=== PATIENT | female | born 1985 | race Caucasian/White ===

== ENCOUNTER 2016-10-27 19:08 | Emergency (ER) | payer MEDICAID ==
[~2016-10-27] VITALS: Ht 154.9 cm; Wt 66.0 kg
[2016-10-27] MEDS ORDERED: ONDANSETRON 4MG ODT PO ONE (22:45)
[2016-10-27] MEDS ORDERED: ACETAMINOPHEN 325MG TABLET PO ONE (22:45)
[2016-10-27 22:48] LABS: CLARITY URINE CLEAR (CLEAR); COLOR URINE YELLOW (YELLOW); GLUCOSE URINE NEGATIVE (NEGATIVE); KETONES URINE NEGATIVE (NEGATIVE); LEUKOCYTE ESTERASE URINE NEGATIVE (NEGATIVE); NITRITE URINE NEGATIVE (NEGATIVE); OCCULT BLOOD URINE 1+ (NEGATIVE); PH URINE 5.5 (4.5-8.0); PROTEIN URINE NEGATIVE (NEGATIVE); SPECIFIC GRAVITY URINE 1.012 (1.005-1.030); UROBILINOGEN URINE 0.2 E.U./dL (0.2-1.0)
[2016-10-27 22:51] LABS: BACTERIA URINE 1+; CALCIUM PHOSPHATE CRYSTALS UR NONE SEEN /lpf; SQUAMOUS EPITHELIAL CELL URINE 1+ /lpf (RARE/1+); WAXY CASTS URINE NONE SEEN /lpf; WBC URINE 0-2 /hpf (0-2); YEAST URINE NONE SEEN
[2016-10-27 23:15] LABS: BASOPHILS % 0.9 % (0.0-2.0); EOSINOPHILS % 2.3 % (0.0-5.0); HEMATOCRIT. 39.8 % (36.0-48.0); HEMOGLOBIN. 13.2 g/dL (12.0-16.0); LYMPHOCYTES % 16.2 % (20.0-50.0); MEAN CORPUSCULAR HGB CONC 33.1 g/dL (31.0-37.0); MEAN CORPUSCULAR VOLUME 87.4 fL (81.0-99.0); MEAN PLATELET VOLUME 8.3 fl (7.4-10.4); NEUTROPHILS % 74.6 % (40.0-76.0); PLATELET 271 x1000/uL (130-400); RED BLOOD CELL COUNT 4.56 mill/uL (4.2-5.4); RED CELL DISTRIBUTION WIDTH 15.2 % (11.6-14.6); WHITE BLOOD COUNT 11.2 x1000/uL (4.5-11.0)
[2016-10-27 23:35] LABS: ALANINE AMINOTRANSFERASE 21 IU/L (13-61); ALBUMIN 3.9 g/dL (3.4-5.0); ANION GAP 15; CALCIUM 8.9 mg/dL (8.5-10.1); CARBON DIOXIDE 26 mEq/L (21-32); CHLORIDE 101 mEq/L (98-107); INDEX HEMOLYSI 1 (1-3); INDEX ICTERIC 1 (1-4); INDEX LIPEMIC 1 (1-3); LIPASE 126 IU/L (73-393); UREA NITROGEN BLOOD 9 mg/dL (7-21); eGFR > 60 mL/min (>60)
[2016-10-27 23:43] LABS: B-HCG QUANTITATIVE 4491 mIU/mL (<3)
[2016-10-28 00:45] VITALS: BP 107/64
== END 2016-10-28 00:55 | disposition home or self-care (01) ==
LOC: ER 19:08
DX: O26.899 Other specified pregnancy related conditions, unspecified trimester (principal); R10.9 Unspecified abdominal pain
CPT/HCPCS: 36415; 76801; 76817; 80053; 81001; 81025; 83690; 84702; 85025; 99285; Q0162

== ENCOUNTER 2016-12-04 12:12 | Emergency (ER) | payer MEDICAID ==
[~2016-12-04] VITALS: Ht 154.9 cm; Wt 67.0 kg
[2016-12-04] MEDS ORDERED: SODIUM CHLORIDE 0.9% 1,000 ML IV ONE (14:30)
[2016-12-04 14:58] LABS: CLARITY URINE CLOUDY (CLEAR); COLOR URINE YELLOW (YELLOW); GLUCOSE URINE NEGATIVE (NEGATIVE); KETONES URINE NEGATIVE (NEGATIVE); LEUKOCYTE ESTERASE URINE 1+ (NEGATIVE); NITRITE URINE NEGATIVE (NEGATIVE); OCCULT BLOOD URINE NEGATIVE (NEGATIVE); PROTEIN URINE NEGATIVE (NEGATIVE); SPECIFIC GRAVITY URINE 1.023 (1.005-1.030)
[2016-12-04 15:29] LABS: MUCUS URINE 3+ /lpf (< = 2+); SQUAMOUS EPITHELIAL CELL URINE 3+ /lpf (RARE/1+)
[2016-12-04 15:30] LABS: BACTERIA URINE 3+
[2016-12-04 16:02] LABS: CHLORIDE 106 mEq/L (98-107); INDEX HEMOLYSI 1 (1-3); INDEX ICTERIC 1 (1-4); INDEX LIPEMIC 1 (1-3)
[2016-12-04 16:09] LABS: BASOPHILS % 0.5 % (0.0-2.0); EOSINOPHILS % 2.3 % (0.0-5.0); HEMATOCRIT. 39.2 % (36.0-48.0); HEMOGLOBIN. 12.9 g/dL (12.0-16.0); LYMPHOCYTES % 14.4 % (20.0-50.0); MEAN CORPUSCULAR HEMOGLOBIN 28.9 pg (28.0-32.0); MEAN CORPUSCULAR HGB CONC 32.9 g/dL (31.0-37.0); MEAN CORPUSCULAR VOLUME 87.9 fL (81.0-99.0); MEAN PLATELET VOLUME 8.6 fl (7.4-10.4); MONOCYTES % 4.1 % (2.0-8.0); NEUTROPHILS % 78.7 % (40.0-76.0); PLATELET 244 x1000/uL (130-400); RED BLOOD CELL COUNT 4.46 mill/uL (4.2-5.4); RED CELL DISTRIBUTION WIDTH 14.5 % (11.6-14.6); WHITE BLOOD COUNT 10.5 x1000/uL (4.5-11.0)
[2016-12-04 16:16] LABS: ANION GAP 11; CARBON DIOXIDE 26 mEq/L (21-32); UREA NITROGEN BLOOD 6 mg/dL (7-21); eGFR > 60 mL/min (>60)
[2016-12-04 16:26] LABS: B-HCG QUANTITATIVE 34800 mIU/mL (<3)
[2016-12-04 19:32] VITALS: BP 106/56
== END 2016-12-04 19:37 | disposition home or self-care (01) ==
LOC: ER 14:39
DX: O20.0 Threatened abortion (principal); O23.41 Unspecified infection of urinary tract in pregnancy, first trimester; Z3A.11 11 weeks gestation of pregnancy
CPT/HCPCS: 36415; 76801; 76817; 80048; 81001; 81025; 84702; 85025; 86850; 86900; 86901; 96360; 99285; J7030; Z7610

== ENCOUNTER 2016-12-29 18:47 | Emergency (ER) | payer MEDICAID ==
[~2016-12-29] VITALS: Ht 154.9 cm; Wt 67.0 kg
[2016-12-29 22:43] LABS: CLARITY URINE CLOUDY (CLEAR); COLOR URINE YELLOW (YELLOW); GLUCOSE URINE NEGATIVE (NEGATIVE); KETONES URINE TRACE (NEGATIVE); LEUKOCYTE ESTERASE URINE NEGATIVE (NEGATIVE); NITRITE URINE NEGATIVE (NEGATIVE); OCCULT BLOOD URINE 2+ (NEGATIVE); PH URINE 5.5 (4.5-8.0); PROTEIN URINE NEGATIVE (NEGATIVE); SPECIFIC GRAVITY URINE 1.032 (1.005-1.030); UROBILINOGEN URINE 0.2 E.U./dL (0.2-1.0)
[2016-12-29 22:45] LABS: BASOPHILS % 0.7 % (0.0-2.0); EOSINOPHILS % 3.7 % (0.0-5.0); HEMATOCRIT. 35.8 % (36.0-48.0); HEMOGLOBIN. 12.1 g/dL (12.0-16.0); LYMPHOCYTES % 21.2 % (20.0-50.0); MEAN CORPUSCULAR HEMOGLOBIN 29.5 pg (28.0-32.0); MEAN CORPUSCULAR VOLUME 86.9 fL (81.0-99.0); MEAN PLATELET VOLUME 8.4 fl (7.4-10.4); MONOCYTES % 5.9 % (2.0-8.0); NEUTROPHILS % 68.5 % (40.0-76.0); PLATELET 229 x1000/uL (130-400); RED BLOOD CELL COUNT 4.12 mill/uL (4.2-5.4); RED CELL DISTRIBUTION WIDTH 13.8 % (11.6-14.6)
[2016-12-29 22:47] LABS: HCG SCREEN POSITIVE
[2016-12-29 23:04] LABS: CARBON DIOXIDE 25 mEq/L (21-32); CHLORIDE 105 mEq/L (98-107)
[2016-12-29 23:12] LABS: B-HCG QUANTITATIVE 15333 mIU/mL (<3)
[2016-12-30 03:26] VITALS: BP 99/35
== END 2016-12-30 03:31 | disposition home or self-care (01) ==
LOC: ER 21:16
DX: O23.42 Unspecified infection of urinary tract in pregnancy, second trimester (principal); Z3A.16 16 weeks gestation of pregnancy
CPT/HCPCS: 36415; 76805; 80048; 81001; 81025; 84702; 84703; 85025; 86850; 86900; 99285

== ENCOUNTER 2017-01-11 21:50 | Emergency (ER) | payer MEDICAID ==
[~2017-01-11] VITALS: Ht 154.9 cm; Wt 67.0 kg
[2017-01-11] MEDS ORDERED: MAGNESIUM/ALUMINUM HYDROXIDE/SIMETHICONE 30ML UDC PO STA (23:33)
[2017-01-11 23:58] LABS: BASOPHILS % 0.5 % (0.0-2.0); EOSINOPHILS % 1.1 % (0.0-5.0); HEMATOCRIT. 35.5 % (36.0-48.0); MEAN CORPUSCULAR HEMOGLOBIN 29.3 pg (28.0-32.0); MEAN CORPUSCULAR VOLUME 86.6 fL (81.0-99.0); MEAN PLATELET VOLUME 8.4 fl (7.4-10.4); MONOCYTES % 6.6 % (2.0-8.0); NEUTROPHILS % 78.8 % (40.0-76.0); PLATELET 215 x1000/uL (130-400); RED BLOOD CELL COUNT 4.11 mill/uL (4.2-5.4); RED CELL DISTRIBUTION WIDTH 13.8 % (11.6-14.6)
[2017-01-12] LABS: CHLORIDE 105 mEq/L (98-107)
[2017-01-12 00:09] LABS: CARBON DIOXIDE 24 mEq/L (21-32)
[2017-01-12 02:23] VITALS: BP 104/58
== END 2017-01-12 02:26 | disposition home or self-care (01) ==
LOC: ER 21:50
DX: O99.611 Diseases of the digestive system complicating pregnancy, first trimester (principal); K29.70 Gastritis, unspecified, without bleeding
CPT/HCPCS: 36415; 80053; 83690; 85025; 99284

== ENCOUNTER 2017-03-16 22:45 | Observation (INO) | payer MEDICAID ==
[~2017-03-16] VITALS: Ht 154.9 cm; Wt 66.2 kg
[2017-03-16] MEDS ORDERED: PREN-88 PO (23:55)
[2017-03-17 00:27] LABS: CLARITY URINE TURBID (CLEAR); COLOR URINE YELLOW (YELLOW); GLUCOSE URINE NEGATIVE (NEGATIVE); KETONES URINE NEGATIVE (NEGATIVE); LEUKOCYTE ESTERASE URINE NEGATIVE (NEGATIVE); NITRITE URINE NEGATIVE (NEGATIVE); OCCULT BLOOD URINE NEGATIVE (NEGATIVE); PH URINE 7.5 (4.5-8.0); PROTEIN URINE NEGATIVE (NEGATIVE); SPECIFIC GRAVITY URINE 1.023 (1.005-1.030)
[2017-03-17] MEDS ORDERED: ACETAMINOPHEN 500MG TABLET PO SCH (00:41)
== END 2017-03-17 01:35 | disposition home or self-care (01) ==
LOC: L&D 22:45
PROVIDERS: ADMIT Obstetrics & Gynecology; ATTEND Obstetrics & Gynecology
DX: O42.912 Preterm premature rupture of membranes, unspecified as to length of time between rupture and onset of labor, second trimester (principal); O26.892 Other specified pregnancy related conditions, second trimester; R10.30 Lower abdominal pain, unspecified; O32.1XX0 Maternal care for breech presentation, not applicable or unspecified; Z3A.25 25 weeks gestation of pregnancy
CPT/HCPCS: 76805; 81001; 99281; G0378

== ENCOUNTER 2017-04-11 15:38 | Observation (INO) | payer MEDICAID ==
[~2017-04-11] VITALS: Ht 154.9 cm; Wt 66.2 kg
[~2017-04-11 15:38] MED LIST: PREN-88 PO
[2017-04-11 16:49] LABS: CLARITY URINE CLEAR (CLEAR); COLOR URINE YELLOW (YELLOW); GLUCOSE URINE NEGATIVE (NEGATIVE); KETONES URINE NEGATIVE (NEGATIVE); LEUKOCYTE ESTERASE URINE 1+ (NEGATIVE); NITRITE URINE NEGATIVE (NEGATIVE); OCCULT BLOOD URINE NEGATIVE (NEGATIVE); PROTEIN URINE NEGATIVE (NEGATIVE); SPECIFIC GRAVITY URINE 1.028 (1.005-1.030)
[2017-04-11] MEDS ORDERED: CEFAZOLIN 2,000 MG in DEXT 5% WATER 100 ML IV SCH (17:30)
[2017-04-11] MEDS ORDERED: LACTATED RINGERS 1,000 ML IV SCH (17:30)
== END 2017-04-11 19:00 | disposition home or self-care (01) ==
LOC: L&D 15:38
PROVIDERS: ADMIT Obstetrics & Gynecology; ATTEND Obstetrics & Gynecology
DX: O26.893 Other specified pregnancy related conditions, third trimester (principal); R30.0 Dysuria; R35.0 Frequency of micturition; Z3A.29 29 weeks gestation of pregnancy
CPT/HCPCS: 81001; 87086; 96365; 99281; G0378; J0690; J7120; 96360; J7060

== ENCOUNTER 2017-05-02 20:30 | Observation (INO) | payer MEDICAID ==
[~2017-05-02] VITALS: Ht 154.9 cm; Wt 66.2 kg
[2017-05-02] MEDS ORDERED: LACTATED RINGERS 1,000 ML IV SCH (22:15)
[2017-05-02 22:29] LABS: CLARITY URINE CLEAR (CLEAR); COLOR URINE DARK YELLOW (YELLOW); GLUCOSE URINE NEGATIVE (NEGATIVE); KETONES URINE NEGATIVE (NEGATIVE); LEUKOCYTE ESTERASE URINE NEGATIVE (NEGATIVE); NITRITE URINE NEGATIVE (NEGATIVE); OCCULT BLOOD URINE NEGATIVE (NEGATIVE); PH URINE 5.5 (4.5-8.0); PROTEIN URINE TRACE (NEGATIVE); SPECIFIC GRAVITY URINE 1.034 (1.005-1.030)
[2017-05-02] MEDS ORDERED: CEFAZOLIN 2,000 MG in DEXT 5% WATER 100 ML IV SCH (22:30)
== END 2017-05-02 23:30 | disposition home or self-care (01) ==
LOC: L&D 20:30
PROVIDERS: ADMIT Obstetrics & Gynecology; ATTEND Obstetrics & Gynecology
DX: O26.893 Other specified pregnancy related conditions, third trimester (principal); R10.30 Lower abdominal pain, unspecified; R30.0 Dysuria; Z3A.32 32 weeks gestation of pregnancy
CPT/HCPCS: 81001; 96365; 99281; G0378; J0690; J7120; 96360; J7060

== ENCOUNTER 2017-05-18 20:20 | Observation (INO) | payer MEDICAID ==
[~2017-05-18] VITALS: Ht 154.9 cm; Wt 65.3 kg
[2017-05-18 21:24] LABS: CLARITY URINE CLOUDY (CLEAR); COLOR URINE YELLOW (YELLOW); GLUCOSE URINE NEGATIVE (NEGATIVE); KETONES URINE NEGATIVE (NEGATIVE); LEUKOCYTE ESTERASE URINE TRACE (NEGATIVE); NITRITE URINE NEGATIVE (NEGATIVE); OCCULT BLOOD URINE NEGATIVE (NEGATIVE); PH URINE 5.5 (4.5-8.0); PROTEIN URINE NEGATIVE (NEGATIVE); SPECIFIC GRAVITY URINE 1.014 (1.005-1.030); UROBILINOGEN URINE 0.2 E.U./dL (0.2-1.0)
[2017-05-18 21:42] LABS: *AMPHETAMINES SCREEN URINE NEGATIVE (NEGATIVE); *BARBITURATES SCREEN URINE NEGATIVE (NEGATIVE); *BENZODIAZEPINES SCREEN URINE NEGATIVE (NEGATIVE); *COCAINE SCREEN URINE NEGATIVE (NEGATIVE); CANNABINOID URINE SCREEN NEGATIVE (NEGATIVE); METHADONE URINE SCREEN NEGATIVE (NEGATIVE); OPIATES URINE SCREEN NEGATIVE (NEGATIVE); PHENCYCLIDINE URINE SCREEN NEGATIVE (NEGATIVE)
[2017-05-18] MEDS ORDERED: LACTATED RINGERS 1,000 ML IV NR (22:45)
[2017-05-19] MEDS ORDERED: CEFAZOLIN 2,000 MG in DEXT 5% WATER 100 ML IV NR ×2
[2017-05-19] MEDS ORDERED: PNV1TABL76 MT (00:24)
== END 2017-05-19 00:45 | disposition home or self-care (01) ==
LOC: L&D 20:20
PROVIDERS: ADMIT Obstetrics & Gynecology; ATTEND Obstetrics & Gynecology
DX: O26.893 Other specified pregnancy related conditions, third trimester (principal); R10.9 Unspecified abdominal pain; R30.0 Dysuria; Z3A.00 Weeks of gestation of pregnancy not specified
CPT/HCPCS: 80305; 81001; 96361; 96365; 99281; G0378; J0690; J7120; 96360; J7060

== ENCOUNTER 2017-05-29 16:33 | Observation (INO) | payer MEDICAID ==
[~2017-05-29] VITALS: Ht 154.9 cm; Wt 66.7 kg
[~2017-05-29 16:33] MED LIST changes: +PNV1TABL76 MT
[2017-05-29] MEDS ORDERED: TERBUTALINE SULFATE 1MG/ML VIAL SUBCUT NR (17:30)
[2017-05-29] MEDS ORDERED: LACTATED RINGERS 1,000 ML IV NR (17:30)
== END 2017-05-29 18:25 | disposition home or self-care (01) ==
LOC: L&D 16:33
PROVIDERS: ADMIT Obstetrics & Gynecology; ATTEND Obstetrics & Gynecology
DX: O62.9 Abnormality of forces of labor, unspecified (principal); Z3A.36 36 weeks gestation of pregnancy
CPT/HCPCS: 96372; 99281; G0378; J3105; J7120; 96360

== ENCOUNTER 2017-06-11 09:42 | Observation (INO) | payer MEDICAID ==
[~2017-06-11] VITALS: Ht 154.9 cm; Wt 68.0 kg
[2017-06-11] MEDS ORDERED: PNV1TABL76 MT (11:57)
[2017-06-11] MEDS ORDERED: LACTATED RINGERS 1,000 ML IV SCH (12:00)
[2017-06-11] MEDS ORDERED: ACETAMINOPHEN 500MG TABLET PO ONE (12:15)
[2017-06-11 12:46] LABS: BASOPHILS % 0.7 % (0.0-2.0); EOSINOPHILS % 0.9 % (0.0-5.0); HEMATOCRIT. 32.6 % (36.0-48.0); HEMOGLOBIN. 10.7 g/dL (12.0-16.0); LYMPHOCYTES % 7.5 % (20.0-50.0); MEAN CORPUSCULAR HEMOGLOBIN 25.9 pg (28.0-32.0); MEAN CORPUSCULAR VOLUME 78.5 fL (81.0-99.0); MEAN PLATELET VOLUME 8.7 fl (7.4-10.4); MONOCYTES % 4.1 % (2.0-8.0); NEUTROPHILS % 86.8 % (40.0-76.0); PLATELET 182 x1000/uL (130-400); RED BLOOD CELL COUNT 4.15 mill/uL (4.2-5.4); RED CELL DISTRIBUTION WIDTH 15.8 % (11.6-14.6)
== END 2017-06-11 13:30 | disposition home or self-care (01) ==
LOC: L&D 09:42
PROVIDERS: ADMIT Obstetrics & Gynecology; ATTEND Obstetrics & Gynecology
DX: O26.893 Other specified pregnancy related conditions, third trimester (principal); R10.9 Unspecified abdominal pain; M54.5 Low back pain; Z3A.38 38 weeks gestation of pregnancy
CPT/HCPCS: 36415; 85025; 96360; G0378; J7120; 96361; 99281

== ENCOUNTER 2018-02-09 09:51 | Emergency (ER) | payer MEDICAID ==
[~2018-02-09] VITALS: Ht 154.9 cm; Wt 66.0 kg
[2018-02-09 10:54] LABS: CLARITY URINE CLEAR (CLEAR); COLOR URINE YELLOW (YELLOW); KETONES URINE TRACE (NEGATIVE); LEUKOCYTE ESTERASE URINE NEGATIVE (NEGATIVE); NITRITE URINE NEGATIVE (NEGATIVE); OCCULT BLOOD URINE TRACE (NEGATIVE); PROTEIN URINE NEGATIVE (NEGATIVE); UROBILINOGEN URINE 0.2 E.U./dL (0.2-1.0)
[2018-02-09 11:09] LABS: BASOPHILS % 0.5 % (0.0-2.0); EOSINOPHILS % 3.7 % (0.0-5.0); HEMATOCRIT. 37.1 % (36.0-48.0); HEMOGLOBIN. 12.3 g/dL (12.0-16.0); LYMPHOCYTES % 17.1 % (20.0-50.0); MEAN CORPUSCULAR HEMOGLOBIN 28.5 pg (28.0-32.0); MEAN CORPUSCULAR VOLUME 85.7 fL (81.0-99.0); MEAN PLATELET VOLUME 8.5 fl (7.4-10.4); MONOCYTES % 5.3 % (2.0-8.0); NEUTROPHILS % 73.4 % (40.0-76.0); PLATELET 226 x1000/uL (130-400); RED BLOOD CELL COUNT 4.33 mill/uL (4.2-5.4); RED CELL DISTRIBUTION WIDTH 15.5 % (11.6-14.6)
[2018-02-09 11:15] LABS: CHLORIDE 103 mEq/L (98-107)
[2018-02-09 11:39] LABS: B-HCG QUANTITATIVE 34433 mIU/mL (<3)
[2018-02-09 12:36] VITALS: BP 97/46
== END 2018-02-09 12:39 | disposition home or self-care (01) ==
LOC: ER 09:51
DX: O20.0 Threatened abortion (principal); O23.41 Unspecified infection of urinary tract in pregnancy, first trimester; B37.2 Candidiasis of skin and nail; Z3A.10 10 weeks gestation of pregnancy
CPT/HCPCS: 36415; 76801; 80053; 81003; 81025; 84702; 85025; 86850; 86900; 86901; 99285; Z7610

== ENCOUNTER 2018-04-19 17:10 | Emergency (ER) | payer MEDICAID ==
[~2018-04-19] VITALS: Ht 154.9 cm; Wt 58.0 kg
[2018-04-19] MEDS ORDERED: SODIUM CHLORIDE 0.9% 1,000 ML IV ONE (17:45)
[2018-04-19 18:23] LABS: BASOPHILS % 0.3 % (0.0-2.0); EOSINOPHILS % 2.6 % (0.0-5.0); HEMATOCRIT. 35.8 % (36.0-48.0); LYMPHOCYTES % 15.4 % (20.0-50.0); MEAN CORPUSCULAR HEMOGLOBIN 29.1 pg (28.0-32.0); MEAN CORPUSCULAR VOLUME 87.3 fL (81.0-99.0); MEAN PLATELET VOLUME 8.7 fl (7.4-10.4); MONOCYTES % 5.7 % (2.0-8.0); PLATELET 247 x1000/uL (130-400)
[2018-04-19 18:31] LABS: CHLORIDE 105 mEq/L (98-107)
[2018-04-19 18:37] LABS: CLARITY URINE CLEAR (CLEAR); COLOR URINE YELLOW (YELLOW); KETONES URINE NEGATIVE (NEGATIVE); LEUKOCYTE ESTERASE URINE NEGATIVE (NEGATIVE); NITRITE URINE NEGATIVE (NEGATIVE); OCCULT BLOOD URINE 1+ (NEGATIVE); PH URINE 5.5 (4.5-8.0); PROTEIN URINE NEGATIVE (NEGATIVE); SPECIFIC GRAVITY URINE 1.029 (1.005-1.030)
[2018-04-19 20:00] VITALS: BP 110/53
== END 2018-04-19 20:16 | disposition home or self-care (01) ==
LOC: ER 18:37
DX: O23.42 Unspecified infection of urinary tract in pregnancy, second trimester (principal); O99.332 Smoking (tobacco) complicating pregnancy, second trimester; N76.0 Acute vaginitis; Z3A.18 18 weeks gestation of pregnancy; F17.200 Nicotine dependence, unspecified, uncomplicated
CPT/HCPCS: 36415; 76805; 80053; 81003; 81025; 85025; 99285; J7030

== ENCOUNTER 2019-04-22 14:14 | Emergency (ER) | payer SELFPAY ==
[~2019-04-22] VITALS: Ht 160 cm; Wt 60.0 kg
[2019-04-22 15:50] VITALS: BP 118/67
[2019-04-22] MEDS ORDERED: BACITRACIN ZINC OINT UDPKT TOP ONE (19:00)
== END 2019-04-22 19:26 | disposition home or self-care (01) ==
LOC: ER 14:14
DX: Z48.02 Encounter for removal of sutures (principal)
CPT/HCPCS: 99283

== ENCOUNTER 2019-08-03 14:24 | Emergency (ER) | payer SELFPAY ==
[~2019-08-03] VITALS: Ht 154.9 cm; Wt 65.0 kg
[2019-08-03] MEDS ORDERED: ACETAMINOPHEN 325MG TABLET PO ONE (21:45)
[2019-08-03 22:14] LABS: CLARITY URINE CLOUDY (CLEAR); COLOR URINE YELLOW (YELLOW); KETONES URINE NEGATIVE (NEGATIVE); LEUKOCYTE ESTERASE URINE NEGATIVE (NEGATIVE); NITRITE URINE NEGATIVE (NEGATIVE); OCCULT BLOOD URINE TRACE (NEGATIVE); PH URINE 5.5 (4.5-8.0); PROTEIN URINE NEGATIVE (NEGATIVE); SPECIFIC GRAVITY URINE 1.021 (1.005-1.030); UROBILINOGEN URINE 0.2 E.U./dL (0.2-1.0)
[2019-08-03 23:07] LABS: BASOPHILS % 0.5 % (0.0-2.0); EOSINOPHILS % 1.7 % (0.0-5.0); HEMATOCRIT. 38.4 % (36.0-48.0); HEMOGLOBIN. 12.9 g/dL (12.0-16.0); LYMPHOCYTES % 26.7 % (20.0-50.0); MEAN CORPUSCULAR HEMOGLOBIN 29.3 pg (28.0-32.0); MEAN CORPUSCULAR VOLUME 87.3 fL (81.0-99.0); MEAN PLATELET VOLUME 8.9 fl (7.4-10.4); MONOCYTES % 12.1 % (2.0-8.0); PLATELET 190 x1000/uL (130-400); RED CELL DISTRIBUTION WIDTH 14.7 % (11.6-14.6)
[2019-08-03 23:08] LABS: CHLORIDE 103 mEq/L (98-107)
[2019-08-03 23:33] LABS: B-HCG QUANTITATIVE 91475 mIU/mL (<3)
[2019-08-04] MEDS ORDERED: CEFTRIAXONE 1 G PREMIX 50 ML IV ONE
[2019-08-04 00:58] VITALS: BP 99/51
[2020-01-08] MEDS ORDERED: PREN1COM16 MT (00:57)
[2020-01-08] MEDS ORDERED: PNV1TABL76 MT (00:57)
== END 2019-08-04 01:01 | disposition home or self-care (01) ==
LOC: ER 14:24
DX: O20.0 Threatened abortion (principal); O23.31 Infections of other parts of urinary tract in pregnancy, first trimester; Z3A.10 10 weeks gestation of pregnancy; Z79.899 Other long term (current) drug therapy
CPT/HCPCS: 36415; 76700; 76801; 80053; 81003; 84702; 85025; 86850; 86900; 99284

== ENCOUNTER 2020-01-07 22:25 | Observation (INO) | payer SELFPAY ==
[2020-01-08 00:51] LABS: CLARITY URINE CLOUDY (CLEAR); COLOR URINE YELLOW (YELLOW); KETONES URINE TRACE (NEGATIVE); LEUKOCYTE ESTERASE URINE TRACE (NEGATIVE); NITRITE URINE NEGATIVE (NEGATIVE); OCCULT BLOOD URINE NEGATIVE (NEGATIVE); PH URINE 5.5 (4.5-8.0); PROTEIN URINE TRACE (NEGATIVE); SPECIFIC GRAVITY URINE 1.031 (1.005-1.030)
[2020-01-08] MEDS ORDERED: PREN1COM16 MT (00:57)
[2020-01-08] MEDS ORDERED: PNV1TABL76 MT (00:57)
== END 2020-01-08 01:20 | disposition home or self-care (01) ==
LOC: 8 EST LDRP 22:25
PROVIDERS: ADMIT Obstetrics & Gynecology; ATTEND Obstetrics & Gynecology
DX: O26.893 Other specified pregnancy related conditions, third trimester (principal); R10.9 Unspecified abdominal pain; Z3A.32 32 weeks gestation of pregnancy
CPT/HCPCS: 81003; 82731; 99281; G0378

== ENCOUNTER 2020-02-21 00:03 | Observation (INO) | payer MEDICAID ==
[~2020-02-21] VITALS: Ht 152.4 cm; Wt 66.2 kg
[~2020-02-21 00:03] MED LIST changes: -PREN-88 PO; +PREN1COM16 MT
== END 2020-02-21 04:50 | disposition home or self-care (01) ==
LOC: 8 EST LDRP 00:03
PROVIDERS: ADMIT Obstetrics & Gynecology; ATTEND Obstetrics & Gynecology
DX: O62.9 Abnormality of forces of labor, unspecified (principal); Z3A.38 38 weeks gestation of pregnancy
CPT/HCPCS: 76815; 76818; 99281; G0378

== ENCOUNTER 2020-11-26 15:44 | Emergency (ER) | payer MEDICAID ==
[~2020-11-26] VITALS: Ht 157.5 cm; Wt 64.0 kg
[2020-11-26 16:39] LABS: CHLORIDE 106 mEq/L (98-107)
[2020-11-26 16:41] LABS: BASOPHILS % 0.5 % (0.0-2.0); EOSINOPHILS % 2.1 % (0.0-5.0); HEMOGLOBIN. 12.7 g/dL (12.0-16.0); LYMPHOCYTES % 20.3 % (20.0-50.0); MEAN CORPUSCULAR VOLUME 84.8 fL (81.0-99.0); MEAN PLATELET VOLUME 8.5 fl (7.4-10.4); MONOCYTES % 5.9 % (2.0-8.0); NEUTROPHILS % 71.2 % (40.0-76.0); PLATELET 265 x1000/uL (130-400); RED BLOOD CELL COUNT 4.37 mill/uL (4.2-5.4); RED CELL DISTRIBUTION WIDTH 16.9 % (11.6-14.6)
[2020-11-26 17:03] LABS: B-HCG QUANTITATIVE 6996 mIU/mL (<3)
[2020-11-26 17:17] LABS: CLARITY URINE CLEAR (CLEAR); COLOR URINE YELLOW (YELLOW); KETONES URINE NEGATIVE (NEGATIVE); LEUKOCYTE ESTERASE URINE NEGATIVE (NEGATIVE); NITRITE URINE NEGATIVE (NEGATIVE); OCCULT BLOOD URINE 1+ (NEGATIVE); PROTEIN URINE NEGATIVE (NEGATIVE); SPECIFIC GRAVITY URINE 1.032 (1.005-1.030); UROBILINOGEN URINE 0.2 E.U./dL (0.2-1.0)
[2020-11-26 17:29] LABS: *AMPHETAMINES SCREEN URINE NEGATIVE (NEGATIVE); *BARBITURATES SCREEN URINE NEGATIVE (NEGATIVE); *BENZODIAZEPINES SCREEN URINE NEGATIVE (NEGATIVE); *COCAINE SCREEN URINE NEGATIVE (NEGATIVE); METHADONE URINE SCREEN NEGATIVE (NEGATIVE)
[2020-11-26 17:30] LABS: CANNABINOID URINE SCREEN NEGATIVE (NEGATIVE); OPIATES URINE SCREEN NEGATIVE (NEGATIVE); PHENCYCLIDINE URINE SCREEN NEGATIVE (NEGATIVE)
[2020-11-26 18:09] VITALS: BP 100/60
== END 2020-11-26 18:11 | disposition home or self-care (01) ==
LOC: ER 15:44
DX: O26.891 Other specified pregnancy related conditions, first trimester (principal); R10.9 Unspecified abdominal pain; Z3A.01 Less than 8 weeks gestation of pregnancy
CPT/HCPCS: 36415; 76801; 80053; 80305; 81003; 81025; 84702; 85025; 86850; 86900; 99284

== ENCOUNTER 2021-02-02 21:13 | Observation (INO) | payer MEDICAID ==
[2021-02-02] MEDS ORDERED: LACTATED RINGERS 1,000 ML IV SCH (22:30)
[2021-02-02] MEDS ORDERED: ACETAMINOPHEN 650MG/20.3ML UDC PO NR (22:30)
[2021-02-03 00:02] LABS: BASOPHILS % 0.7 % (0.0-2.0); EOSINOPHILS % 2.8 % (0.0-5.0); HEMATOCRIT. 37.5 % (36.0-48.0); HEMOGLOBIN. 12.8 g/dL (12.0-16.0); MEAN CORPUSCULAR HEMOGLOBIN 29.5 pg (28.0-32.0); MEAN CORPUSCULAR VOLUME 86.8 fL (81.0-99.0); MEAN PLATELET VOLUME 9.5 fl (7.4-10.4); MONOCYTES % 5.2 % (2.0-8.0); NEUTROPHILS % 76.3 % (40.0-76.0); PLATELET 208 x1000/uL (130-400); RED BLOOD CELL COUNT 4.32 mill/uL (4.2-5.4); RED CELL DISTRIBUTION WIDTH 14.4 % (11.6-14.6)
[2021-02-03] MEDS ORDERED: AZIT500T3 MT (00:17)
== END 2021-02-03 01:00 | disposition home or self-care (01) ==
LOC: 8 EST LDRP 21:13
PROVIDERS: ADMIT Obstetrics & Gynecology; ATTEND Obstetrics & Gynecology
DX: O26.892 Other specified pregnancy related conditions, second trimester (principal); R51.9 Headache, unspecified; O21.2 Late vomiting of pregnancy; Z3A.24 24 weeks gestation of pregnancy
CPT/HCPCS: 36415; 76805; 85025; 87426; 96360; 96361; G0378; 99281

== ENCOUNTER 2023-02-02 09:11 | Emergency (ER) | payer MEDICAID ==
[~2023-02-02] VITALS: Ht 154.9 cm; Wt 66.6 kg
[~2023-02-02 09:11] MED LIST changes: +AZIT500T3 MT
[2023-02-02 09:21] VITALS: TEMP 98.7; O2SAT 98
[2023-02-02 09:42] LABS: EOSINOPHILS % 7.4 % (0.0-5.0); HEMATOCRIT. 38.9 % (36.0-48.0); HEMOGLOBIN. 13.1 g/dL (12.0-16.0); LYMPHOCYTES % 21.2 % (20.0-50.0); MEAN CORPUSCULAR HEMOGLOBIN 30.4 pg (28.0-32.0); MEAN CORPUSCULAR VOLUME 90.2 fL (81.0-99.0); MEAN PLATELET VOLUME 8.8 fl (7.4-10.4); MONOCYTES % 4.5 % (2.0-8.0); NEUTROPHILS % 65.9 % (40.0-76.0); PLATELET 275 x1000/uL (130-400); RED BLOOD CELL COUNT 4.31 mill/uL (4.2-5.4); RED CELL DISTRIBUTION WIDTH 13.5 % (11.6-14.6)
[2023-02-02 09:48] LABS: CHLORIDE 107 mEq/L (98-107)
[2023-02-02 10:26] LABS: HCG SCREEN NEGATIVE
[2023-02-02] MEDS ORDERED: IBUP-2029 MT (11:14)
[2023-02-02] MEDS ORDERED: IBUPROFEN 600MG TABLET PO ONE (11:15)
[2023-02-02 11:30] VITALS: BP 121/69; PULSE 71; RESP 18
[2023-02-02 11:49] LABS: CLARITY URINE CLEAR (CLEAR); COLOR URINE YELLOW (YELLOW); KETONES URINE NEGATIVE (NEGATIVE); LEUKOCYTE ESTERASE URINE NEGATIVE (NEGATIVE); NITRITE URINE NEGATIVE (NEGATIVE); OCCULT BLOOD URINE NEGATIVE (NEGATIVE); PH URINE 6.5 (4.5-8.0); PROTEIN URINE NEGATIVE (NEGATIVE)
== END 2023-02-02 11:49 | disposition home or self-care (01) ==
LOC: ER 09:11
DX: N23 Unspecified renal colic (principal); K81.9 Cholecystitis, unspecified
CPT/HCPCS: 36415; 80053; 81003; 81025; 84703; 85025; 99283

== ENCOUNTER 2023-03-11 16:37 | Emergency (ER) | payer MEDICAID ==
[~2023-03-11] VITALS: Ht 152.4 cm; Wt 65.0 kg
[~2023-03-11 16:37] MED LIST changes: +IBUP-2029 MT
[2023-03-11 16:44] VITALS: BP 113/40; PULSE 72; RESP 20; TEMP 98; O2SAT 100
[2023-03-11 18:14] LABS: CLARITY URINE CLEAR (CLEAR); COLOR URINE YELLOW (YELLOW); GLUCOSE URINE NEGATIVE (NEGATIVE); KETONES URINE NEGATIVE (NEGATIVE); LEUKOCYTE ESTERASE URINE NEGATIVE (NEGATIVE); NITRITE URINE NEGATIVE (NEGATIVE); OCCULT BLOOD URINE NEGATIVE (NEGATIVE); PH URINE 6.5 (4.5-8.0); PROTEIN URINE NEGATIVE (NEGATIVE); SPECIFIC GRAVITY URINE 1.021 (1.005-1.030)
[2023-03-11 18:33] LABS: BASOPHILS % 0.6 % (0.0-2.0); EOSINOPHILS % 6.1 % (0.0-5.0); HEMATOCRIT. 38.1 % (36.0-48.0); LYMPHOCYTES % 23.4 % (20.0-50.0); MEAN CORPUSCULAR HEMOGLOBIN 30.8 pg (28.0-32.0); MEAN CORPUSCULAR HGB CONC 34.1 g/dL (31.0-37.0); MEAN CORPUSCULAR VOLUME 90.2 fL (81.0-99.0); MEAN PLATELET VOLUME 8.1 fl (7.4-10.4); MONOCYTES % 6.2 % (2.0-8.0); NEUTROPHILS % 63.7 % (40.0-76.0); PLATELET 255 x1000/uL (130-400); RED BLOOD CELL COUNT 4.23 mill/uL (4.2-5.4); RED CELL DISTRIBUTION WIDTH 13.2 % (11.6-14.6)
[2023-03-11 18:41] LABS: CHLORIDE 105 mEq/L (98-107); INDEX HEMOLYSI 1 (1-3); INDEX ICTERIC 1 (1-4); INDEX LIPEMIC 1 (1-3); POTASSIUM 3.8 mEq/L (3.5-5.1); SODIUM 137 mEq/L (136-145)
[2023-03-11 18:49] LABS: ALANINE AMINOTRANSFERASE 21 IU/L (13-61); ALBUMIN 3.6 g/dL (3.4-5.0); ASPARTATE AMINOTRANSFERASE 17 IU/L (15-37); BILIRUBIN TOTAL 0.4 mg/dL (0.1-1.0); CALCIUM 9.1 mg/dL (8.5-10.1); CARBON DIOXIDE 26 mEq/L (21-32); CREATININE 0.6 mg/dL (0.6-1.3); GLUCOSE 104 mg/dL (70-105); PROTEIN TOTAL 7.6 g/dL (6.0-8.3); UREA NITROGEN BLOOD 15 mg/dL (7-21)
== END 2023-03-12 04:22 | disposition left against medical advice (07) ==
LOC: ER 16:37
DX: R10.30 Lower abdominal pain, unspecified (principal); R11.10 Vomiting, unspecified; R19.7 Diarrhea, unspecified; Z79.899 Other long term (current) drug therapy
CPT/HCPCS: 36415; 80053; 81003; 81025; 85025; 99283